=== PATIENT | female | born 1955 | race African-American/Black ===

== ENCOUNTER → 2017-07-30 | Outpatient (CLI) | payer BC ==
--- NOTE | 2017-07-30 13:09 | Diagnostic Imaging Report ---
PROCEDURE:ABDOMEN-1VIEW (KUB) TECHNIQUE:AP abdomen: 2 radiographs INDICATION:Calculus of kidney COMPARISON:None. FINDINGS: See conclusion. CONCLUSION: 1. Three 2 mm calcifications over the left inferior pole. No definite calcifications in the right kidney. 2. Multiple pelvic phleboliths. 3. Normal bowel gas pattern. No evidence of ascites. 4. Next skeletal metastases degenerative disc disease and facet arthropathy. Dictated by: Loy Martinez M.D. on 07/30/2017 at 13:18 Electronically approved by: Loy Martinez M.D. on 07/30/2017 at 13:18
== END ==
LOC: RAD 12:30
PROVIDERS: ATTEND Urology
DX: N20.0 Calculus of kidney (principal)
CPT/HCPCS: 74000